=== PATIENT | female | born 1955 | race Caucasian/White ===

== ENCOUNTER 2019-03-01 13:26 | Inpatient (IN) ==
[2019-03-01] MEDS ORDERED: TYLENOL PO PRN (14:14)
[2019-03-01] MEDS ORDERED: DESYREL PO PRN (14:14)
[2019-03-01] MEDS ORDERED: VANCOMYCIN IV PER PHARMACY MISC SCH (14:14)
[2019-03-01 14:46] LABS: BASO# 0.03 X1000 (0.0-0.2); BASO% 0.2 % (0.0-0.8); EOS# 0.28 X1000 (0.0-0.7); EOS% 1.7 % (0.0-10.0); IMM GRAN% 0.2 % (0.0-0.5); LYMPH# 1.45 X1000 (1.2-3.4); MCH 27.4 PG (27-31); MCHC 32.5 g/dL (33-37); MCV 84.4 FL (81-99); MONO# 1.14 X1000 (0.11-0.59); MONO% 7.1 % (1.7-9.3); MPV 9.6 FL (7.4-10.4); NEUT# 13.19 X1000 (1.4-6.5); NEUT% 81.8 % (42.2-75.2); PLT 257 X1000 (130-400); RBC 4.74 XMIL (4.2-5.4); RDW 14.9 % (11.5-14.5); WBC 16.13 X1000 (4.8-10.8)
[2019-03-01 14:47] LABS: IMM GRAN# 0.04 X1000 (0.0-0.04)
[2019-03-01 15:07] LABS: AGAP 11; BUN 12 mg/dL (8-22); CALCIUM 9.6 mg/dL (8.8-10.2); CHLORIDE 95 mmol/L (98-107); COSMO 270; CREATININE 0.7 mg/dL (0.5-0.9); ESTIMATED GFR > 60; GLUCOSE 127 mg/dL (70-104); POTASSIUM 3.2 mmol/L (3.5-5.1); SODIUM 134 mmol/L (136-145); TCO2 28 mmol/L (25-35)
[2019-03-01] MEDS: NS 1,000 ML IV SCH (15:33)
[2019-03-01] MEDS: LEVAQUIN 500 MG/D5W 500 MG/100 ML IVPB IV SCH (15:33)
[2019-03-01] MEDS: NORCO-10 PO PRN ×2 (15:34→21:38)
[2019-03-01] MEDS: LOVENOX SUBQ SCH (15:34)
[2019-03-01] MEDS ORDERED: VANCOMYCIN 2 GM in NS 500 ML IV ONE (16:00)
[2019-03-01] MEDS ORDERED: HUMULIN 70/30 SUBQ SCH (16:00)
[2019-03-01] MEDS ORDERED: KLOR-CON PO ONE (18:20)
[2019-03-01 19:59] LABS: INR 1.26; PROTIME 16.8 Seconds (11.0-16.0)
[2019-03-01 20:00] LABS: PTT 49.2 Seconds (22.3-41.8)
[2019-03-01] MEDS: ELAVIL PO SCH (20:43)
[2019-03-01] MEDS: RISPERDAL PO SCH (20:43)
[2019-03-01] MEDS: APRESOLINE PO SCH (20:43)
[2019-03-01] MEDS: TENORMIN PO SCH (20:43)
[2019-03-01] MEDS: MIRAPEX PO SCH (20:43)
[2019-03-02] MEDS: NORCO-10 PO PRN ×4 (03:48→22:06)
[2019-03-02] MEDS: PHENERGAN IV PRN ×3 (03:49→18:57)
[2019-03-02] MEDS ORDERED: HUMULIN 70/30 SUBQ SCH (07:00)
[2019-03-02] MEDS: NORVASC PO SCH (08:10)
[2019-03-02] MEDS: LEXAPRO PO SCH ×2 (08:10→20:31)
[2019-03-02] MEDS: APRESOLINE PO SCH ×2 (08:10→20:31)
[2019-03-02] MEDS: ESTRACE PO SCH (08:11)
[2019-03-02] MEDS: TENORMIN PO SCH ×2 (08:11→20:31)
[2019-03-02] MEDS: RISPERDAL PO SCH ×2 (08:11→20:30)
[2019-03-02] MEDS: HYZAAR 50/12.5 MG PO SCH (08:11)
[2019-03-02] MEDS: NS 1,000 ML IV SCH ×3 (08:11→16:05)
--- NOTE | 2019-03-02 09:11 | PROGRESS NOTE ---
DATE: 03/02/2019 SUBJECTIVE: Mrs. Trejo was admitted to [facility] with cellulitis of the right lower extremity. She met initial screening criteria for sepsis. She has persistent warmth and erythema in the right lower extremity but the amount of swelling has improved overnight on IV antibiotics. Lactate levels are all within normal limits. Blood sugars are fluctuating. Blood sugar this morning was 195. Blood pressure is stable. She denies any chest pain, palpitations, or anginal equivalents. OBJECTIVE: Vital signs: Temperature 99.1, pulse 70, respirations 20, BP 145/63. CV: Regular rate and rhythm. Lungs: Clear. Abdomen: Soft, nontender, with active bowel sounds. Extremities: There is marked erythema and warmth of the tibial aspect of the right lower extremity. She has less peripheral edema in that leg. ASSESSMENT AND PLAN: 1. Cellulitis of the right lower extremity. Because of leukocytosis, fever, and defined source of infection, she met the initial criteria for sepsis. She is hemodynamically stable. There has been no evidence of end-organ damage. Lactate levels are normal. We will continue intravenous Levaquin and vancomycin pending cultures. 2. Type 2 insulin-dependent diabetes mellitus. We will continue an 1800 calorie ADA diet, pattern sugars, Humulin-R sliding scale, and will adjust the dosage of Novolin 70/30 as needed. cc: Mana Fajardo MD
[2019-03-02] MEDS: SODIUM CHLORIDE 0.9% INJ PRN ×2 (13:20→18:57)
[2019-03-02] MEDS: LOVENOX SUBQ SCH (15:20)
[2019-03-02] MEDS: LEVAQUIN 500 MG/D5W 500 MG/100 ML IVPB IV SCH (15:20)
[2019-03-02] MEDS: HUMULIN 70/30 SUBQ SCH (16:03)
[2019-03-02] MEDS: VANCOMYCIN 1,500 MG in NS 250 ML IV SCH (16:04)
[2019-03-02] MEDS: ELAVIL PO SCH (20:31)
[2019-03-02] MEDS: MIRAPEX PO SCH (20:31)
[2019-03-03] MEDS: NS 1,000 ML IV SCH ×2 (01:32→15:08)
[2019-03-03] MEDS: HUMULIN 70/30 SUBQ SCH ×2 (06:12→17:03)
[2019-03-03] MEDS: PHENERGAN IV PRN (06:13)
[2019-03-03] MEDS: NORCO-10 PO PRN ×4 (06:13→21:26)
[2019-03-03 07:10] LABS: BASO# 0.03 X1000 (0.0-0.2); BASO% 0.4 % (0.0-0.8); EOS# 0.26 X1000 (0.0-0.7); EOS% 3.7 % (0.0-10.0); HEMOGLOBIN 11.3 g/dL (12.0-16.0); LYMPH# 1.37 X1000 (1.2-3.4); LYMPH% 19.5 % (20.5-51.1); MCHC 31.4 g/dL (33-37); MCV 85.9 FL (81-99); MONO# 0.76 X1000 (0.11-0.59); MONO% 10.8 % (1.7-9.3); MPV 9.4 FL (7.4-10.4); NEUT# 4.62 X1000 (1.4-6.5); NEUT% 65.6 % (42.2-75.2); PLT 239 X1000 (130-400); RBC 4.19 XMIL (4.2-5.4); RDW 14.7 % (11.5-14.5); WBC 7.04 X1000 (4.8-10.8)
[2019-03-03 07:31] LABS: AGAP 10; BUN 12 mg/dL (8-22); CALCIUM 8.2 mg/dL (8.8-10.2); CHLORIDE 103 mmol/L (98-107); COSMO 281; CREATININE 0.6 mg/dL (0.5-0.9); ESTIMATED GFR > 60; GLUCOSE 137 mg/dL (70-104); POTASSIUM 2.9 mmol/L (3.5-5.1); SODIUM 140 mmol/L (136-145); TCO2 27 mmol/L (25-35)
[2019-03-03] MEDS ORDERED: KLOR-CON PO ONE (10:44)
[2019-03-03] MEDS: LEXAPRO PO SCH ×2 (11:14→20:02)
[2019-03-03] MEDS: NORVASC PO SCH (11:20)
[2019-03-03] MEDS: TENORMIN PO SCH ×2 (11:20→20:02)
[2019-03-03] MEDS: ESTRACE PO SCH (11:21)
[2019-03-03] MEDS: HYZAAR 50/12.5 MG PO SCH (11:23)
[2019-03-03] MEDS: APRESOLINE PO SCH ×2 (11:23→20:02)
[2019-03-03] MEDS: RISPERDAL PO SCH ×2 (11:23→20:02)
--- NOTE | 2019-03-03 12:19 | PROGRESS NOTE ---
DATE: 03/03/2019 SUBJECTIVE: The patient's chart was reviewed. In summary, the patient was admitted on 03/01/2019 with significant right lower extremity swelling with associated erythema and fever to 103. The diagnosis of a right lower extremity cellulitis was made. Upon admission, the patient's white blood cell count was noted to be elevated at 16,000. Blood cultures were drawn. The patient was started on vancomycin and Levaquin therapy. Since that time, the patient states she has demonstrated mild, although very slow improvement. She continues to have considerable right lower extremity edema and erythema. Pain is significant although slightly improved. She has had no fevers, chills, shortness of breath, or chest pain overnight. She has developed nausea since starting antibiotics. OBJECTIVE: T-max 98.4, heart rate 64 to 78, respirations 16 to 20, blood pressure 128 to 168 over 60 to 84. General: Well nourished, well developed, in no acute distress. Cardiovascular: Regular rate and rhythm. No significant murmurs, rubs, or gallops. Pulmonary: Clear to auscultation bilaterally. Abdomen: Soft, nontender, nondistended. Positive bowel sounds. Extremities: Moves all extremities well. No significant clubbing or cyanosis. One to 2+ lower extremity edema on the right associated with cellulitis. Dermatologic: Evaluation reveals deep erythema with localized fever to the right lower extremity, per report, slightly improved from admission. LABORATORY DATA: White blood count 7.04 hemoglobin 11.3, hematocrit 36.0, platelet count 239,000. Sodium 140, potassium 2.9, chloride 103 bicarb 27, BUN 12, creatinine 0.6, glucose 137, calcium 8.2. ASSESSMENT AND PLAN: 1. Cellulitis of the right lower extremity. This remains significant. The patient continues to have considerable pain. White blood cell count and fever have improved, suggesting better control with antibiotic intervention. Blood cultures thus far are negative. Unfortunately, her clinical situation remains marginal. She continues to have considerable pain as well as considerable erythema and induration. For now, the patient continues to require IV antibiotic intervention. We will continue this and determine when discharge home is appropriate depending on her clinical improvement. 2. Hypokalemia. We will provide potassium supplementation today. 3. Type 2 diabetes. The patient is currently being treated with ADA diet and insulin 70/30. Blood sugars are reasonably controlled. 4. Hypertension. We will continue the patient on her home medications. 5. Nausea. We discussed this in detail. While I suspect this is antibiotic associated, I am hesitant to make any changes with her laboratory improvement. If she continues to have considerable nausea tomorrow, we will consider transitioning from Levaquin to Zosyn therapy. We will continue antiemetic agents for now. 6. Disposition. At this point, the patient continues to require correction care in a hospital setting. We will plan discharge home once appropriate. cc: MD Mana Curtis MD
[2019-03-03] MEDS: LEVAQUIN 500 MG/D5W 500 MG/100 ML IVPB IV SCH (15:04)
[2019-03-03] MEDS: LOVENOX SUBQ SCH (15:04)
[2019-03-03] MEDS: VANCOMYCIN 1,500 MG in NS 250 ML IV SCH (17:02)
[2019-03-03] MEDS: ELAVIL PO SCH (20:02)
[2019-03-03] MEDS: MIRAPEX PO SCH (20:02)
[2019-03-04] MEDS: NORCO-10 PO PRN ×5 (01:53→20:46)
[2019-03-04] MEDS: NS 1,000 ML IV SCH ×2 (06:30→06:35)
[2019-03-04] MEDS: HUMULIN 70/30 SUBQ SCH ×2 (07:00→16:54)
[2019-03-04] MEDS: RISPERDAL PO SCH ×2 (08:59→20:45)
[2019-03-04] MEDS: NORVASC PO SCH (08:59)
[2019-03-04] MEDS: APRESOLINE PO SCH ×2 (09:00→20:46)
[2019-03-04] MEDS: HYZAAR 50/12.5 MG PO SCH (09:00)
[2019-03-04] MEDS: ESTRACE PO SCH (09:00)
[2019-03-04] MEDS: TENORMIN PO SCH ×2 (09:00→20:45)
[2019-03-04] MEDS: PHENERGAN IV PRN (09:02)
[2019-03-04] MEDS ORDERED: NS 1,000 ML IV SCH (11:45)
[2019-03-04] MEDS: ZOSYN 3.375 GM in NS 50 ML IV SCH ×2 (12:00→16:00)
--- NOTE | 2019-03-04 12:18 | PROGRESS NOTE ---
DATE: 03/04/2019 SUBJECTIVE: Over the course of the last 24 hours, unfortunately, the patient states that she has developed further decline in her clinical condition. The patient notes increasing pain associated with her cellulitis to the left lower extremity. She has developed several vesicles as well as small pustules associated. She continues to have considerable nausea with decreased p.o. intake. She denies fevers, chills, shortness of breath, or chest pain at the present time. OBJECTIVE: T-max 98.6 degrees, heart rate 66 to 72, respirations 18 to 20, blood pressure 128- 170/63-84. General: Well-nourished, well-developed, in no acute distress. Cardiovascular: Regular rate and rhythm. No significant murmurs, rubs, or gallops. Pulmonary: Clear to auscultation bilaterally. Abdomen: Soft, nontender, nondistended. Positive bowel sounds. Extremities: Moves all extremities well. There is 2+ lower extremity edema on the right with associated cellulitis as described. No clubbing or cyanosis. No clubbing, cyanosis, or edema on the left. Dermatologic: Evaluation reveals a deeply erythematous patch with localized fever to the right lower extremity. From yesterday, there, she has developed several vesicles and small pustules. Laboratory Data: None. ASSESSMENT AND PLAN: 1. Cellulitis of the right lower extremity-unfortunately, clinically, this continues to progress. From a laboratory and vital sign standpoint, she has achieved improvement. At this point, we will convert the patient from levofloxacin to Zosyn therapy secondary to associated nausea. I have asked nursing staff to culture the vesicle or pustule if this ruptures. We will schedule a lower extremity venous Doppler to rule out associated deep venous thrombosis. Depending on the patient's progress over the course of the next 24 hours, we will consider whether infectious disease consultation is appropriate. We will remain aware that this could be a primary dermatologic pathology; however, this seems less likely. In the setting of fevers, a primary infectious etiology seems most likely. 2. Hypokalemia-patient was repleted yesterday. We will recheck this tomorrow. 3. Type 2 diabetes-patient's blood sugars are reasonably controlled on her current regimen. 4. Hypertension-the patient's blood pressure is marginally elevated. For now, we will continue her home regimen. We will defer further titration to Dr. Fajardo. I suspect some of the elevation is reactive secondary to pain. 5. Nausea-since starting antibiotic intervention, the patient has developed persistent nausea. Her oral intake is decreasing. At this point, I feel vancomycin is necessary for treatment. We will convert the patient from levofloxacin to Zosyn to see if this improves the nausea. This will also broaden coverage. We will continue antiemetic agents for now. 6. Disposition-at this point, the patient continues to require penitentiary care in a hospital setting. We will plan discharge home once appropriate. cc: MD Mana Curtis MD
--- NOTE | 2019-03-04 15:05 | Diag Imaging Result Doc PS360 ---
EXAM: CT EXT LOWER RIGHT W/CON 03/04/2019 HISTORY: Persistent cellulitis with pain, rule out abscess TECHNIQUE: CT of the legs with intravenous contrast COMMENT: There is generalized subcutaneous edema bilaterally, worse on the right than the left. There is a greater degree of venous enhancement in the right calf than on the left. This may represent increased blood flow to the right leg. There are no definite filling defects in the visualized veins. There is no evidence of acute bony disease. No erosions or periosteal reactions are present. IMPRESSION: Edema and hyperemia in the right leg consistent with cellulitis. No evidence of discrete abscess. Electronically signed by Rodney Yang 03/04/2019 3:03 PM
[2019-03-04] MEDS: VANCOMYCIN 1,500 MG in NS 250 ML IV SCH (16:54)
[2019-03-04] MEDS: LOVENOX SUBQ SCH (16:54)
[2019-03-04] MEDS: MIRAPEX PO SCH (20:45)
[2019-03-04] MEDS: LEXAPRO PO SCH (20:45)
[2019-03-04] MEDS: ELAVIL PO SCH (20:45)
[2019-03-05] MEDS: ZOSYN 3.375 GM in NS 50 ML IV SCH ×3 (01:07→12:50)
[2019-03-05] MEDS: NORCO-10 PO PRN ×5 (01:49→20:45)
[2019-03-05] MEDS: HUMULIN 70/30 SUBQ SCH ×2 (06:05→17:13)
[2019-03-05 07:23] LABS: BASO# 0.09 X1000 (0.0-0.2); BASO% 1.1 % (0.0-0.8); EOS# 0.24 X1000 (0.0-0.7); HEMATOCRIT 35.3 % (37.0-47.0); HEMOGLOBIN 11.4 g/dL (12.0-16.0); IMM GRAN# 0.03 X1000 (0.0-0.04); IMM GRAN% 0.4 % (0.0-0.5); LYMPH# 1.67 X1000 (1.2-3.4); LYMPH% 20.7 % (20.5-51.1); MCH 27.4 PG (27-31); MCHC 32.3 g/dL (33-37); MCV 84.9 FL (81-99); MONO# 0.86 X1000 (0.11-0.59); MONO% 10.7 % (1.7-9.3); MPV 9.1 FL (7.4-10.4); NEUT# 5.17 X1000 (1.4-6.5); NEUT% 64.1 % (42.2-75.2); PLT 260 X1000 (130-400); RBC 4.16 XMIL (4.2-5.4); RDW 14.6 % (11.5-14.5); WBC 8.06 X1000 (4.8-10.8)
[2019-03-05 07:26] LABS: AGAP 12; ALB/GLOB RATIO 0.7; ALBUMIN 2.9 g/dL (3.5-5.0); ALKALINE PHOSPHATASE 92 U/L (32-104); BUN 5 mg/dL (8-22); CALCIUM 8.5 mg/dL (8.8-10.2); CHLORIDE 102 mmol/L (98-107); COSMO 277; CREATININE 0.5 mg/dL (0.5-0.9); ESTIMATED GFR > 60; GLUCOSE 110 mg/dL (70-104); GOT 14 U/L (10-30); GPT 9 U/L (10-36); POTASSIUM 3.1 mmol/L (3.5-5.1); SODIUM 140 mmol/L (136-145); TCO2 26 mmol/L (25-35); TOTAL BILIRUBIN 0.42 mg/dL (0.20-1.00); TOTAL PROTEIN 6.8 g/dL (6.3-8.3)
[2019-03-05 07:45] LABS: EOS 4 % (1-10); LYMPHS 22 % (21-51); MONO 9 % (1-9); SEGS 65 % (42-75)
[2019-03-05] MEDS: TENORMIN PO SCH ×2 (08:02→20:45)
[2019-03-05] MEDS: RISPERDAL PO SCH ×2 (08:02→20:44)
[2019-03-05] MEDS: ESTRACE PO SCH (08:03)
[2019-03-05] MEDS: HYZAAR 50/12.5 MG PO SCH (08:03)
[2019-03-05] MEDS: NORVASC PO SCH (08:03)
[2019-03-05] MEDS: APRESOLINE PO SCH ×2 (08:03→20:45)
[2019-03-05] MEDS: PHENERGAN IV PRN (08:05)
[2019-03-05] MEDS ORDERED: KLOR-CON PO ONE (08:10)
--- NOTE | 2019-03-05 08:51 | PROGRESS NOTE ---
DATE: 03/05/2019 SUBJECTIVE: Mrs. Trejo was admitted to [facility] with a cellulitis of the right lower extremity. She continues with persistent erythema and swelling as well as pain of the right lower extremity. Her leukocytosis of 16,000 has resolved. She is no longer running any fevers. Unfortunately, the erythema seems worse this morning. She now has vesicular lesions on the right lower extremity. A CT scan of the right lower extremity demonstrated significant cellulitis, but no bony lesions suggestive of osteomyelitis. Blood pressures are running in the 140s and 150s whereas her diastolic blood pressures are in the 70s and 80s. She denies any chest pain, palpitations, or anginal equivalents. She has a history of type 2 insulin-dependent diabetes mellitus. Her morning sugars are consistently less than 120. Her postprandial sugars are in 150s and 160s. OBJECTIVE: Temperature 98.4 degrees, pulse 70, respirations 18, and BP 139/70.CV: Regular rate and rhythm. Lungs: Clear. Abdomen: Soft and nontender with active bowel sounds. Extremities: There is marked erythema of the tibial aspect of the right lower extremity with vesicular lesions. A CBC demonstrated white count of 8000, hemoglobin 11.4, hematocrit 35.3 and platelet count 260,000. Electrolytes demonstrate the following. Sodium 140, potassium 3.1, BUN 5, creatinine 0.5 and glucose 110. ASSESSMENT AND PLAN: 1. Cellulitis of the right lower extremity. Her leukocytosis and high fevers have resolved. She still has a persistent erythema and swelling of the right lower extremity. A CT scan of the lower extremity demonstrated no evidence of osteomyelitis. Blood cultures x2 are negative at 48 hours. Gram stain of the vesicular lesion demonstrated no bacteria. We will continue both the Zosyn and vancomycin. I will consult Dr. Tello Howard for further evaluation. 2. Type 2 insulin-dependent diabetes mellitus. Blood sugars are generally well controlled. We will continue an 1800 calorie ADA diet, pattern sugars, Humulin R sliding scale, and home dosage of Novolin 70/30, 20 units in the morning, and 15 units at night. cc: Mana Fajardo MD
--- NOTE | 2019-03-05 10:36 | INFECTIOUS DISEASE CONSULT REP ---
DATE: 03/07/2019 CONCLUSION: The patient has leg cellulitis to which she is predisposed because of her morbid obesity causing chronic leg edema. RECOMMENDATIONS: 1. As regarding antibiotics, I would switch the patient to Ancef 2 g IV every 8 hours and continue that for anywhere from another 3 to 7 days and then discharge the patient on p.o. Keflex 500 mg p.o. every 8 hours for another 1 to 2 weeks. If the culture taken from the leg shows an organism resistant to Ancef then I would change antibiotics to cover the organism. 2. Leg elevation as you are doing. The leg needs to be kept up and as high as possible which you are doing and also for as long as long as possible. The patient noted that when she stood up her leg was very painful and unfortunately with a bad leg cellulitis that happens and with time the pain should go away. 3. Would be weight loss, which might be impossible to do in this patient, but still she really she really needs to lose weight or else she is going to continue to have cellulitis in that leg and possibly in the other leg also. 4. Support stockings. I would get the ones that you can get at a drug store and they should be length from the foot to the thigh and should be will worn all the time. 5. I would tell the patient to avoid salt and salty foods. 6. Sometimes patients have tinea pedis and this can serve as a portal of entry for cellulitis in the leg. Ms. Trejo does not have does not have tinea pedis, but if she should get it, but I told her she should use a cream such as clotrimazole to put between her toes every 12 hours until the rash disappears and then if it comes back again to restart using the clotrimazole twice a day until the rash goes away and then continue it daily on a chronic basis. DISCUSSION: The patient approximately 5 days ago started having swelling and erythema involving the right leg. She also had pain and fever. She has been admitted to the hospital and her fever has gone away and the pain is gone away except when she stands up on the leg. LABORATORY DATA: Patient's laboratory studies show a CBC with a white count of 8060, hemoglobin 11.4, and platelet count 260,000. Creatinine is 0.5, GFR is greater than 60. Gram stain taken from a culture of the patient's leg showed a rare white cell, but no organisms. Blood cultures are sterile. CT scan of the leg showed cellulitis. PAST MEDICAL HISTORY/REVIEW OF SYSTEMS: Eyes and ears: She does not have any trouble hearing or seeing. Neck no stiffness. Respiratory: No cough shortness of breath. Cardiac no chest pain or palpitations. GI no nausea, vomiting, or diarrhea. :No dysuria or flank pain. Bones, joints, muscle see present illness. Neurologic: No seizures no loss of motor or sensory function. 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 She has had a hysterectomy. PREVIOUS HOSPITALIZATIONS AND OPERATIONS: She has had 2 labor and deliveries, a miscarriage, a hysterectomy, bilateral carpal tunnel surgery, cataract surgery, and gastric bypass. She has also had a tonsillectomy, breast reduction and tummy tuck. MEDICAL DISEASES: Positive for morbid obesity, diabetes mellitus, and hypertension. INFECTIOUS DISEASE HISTORY: Infectious disease history positive for pneumonia. FAMILY HISTORY: Family history positive for diabetes mellitus, hypertension, myocardial infarction, and cancer. SOCIAL HISTORY: [place] She is . She has dogs, cats and donkeys for pets. ALLERGIES: Allergic to morphine. HOME MEDICATIONS: Include the following: Elavil, amlodipine, atenolol, Librium, Lexapro, Estrace, insulin, losartan/hydrochlorothiazide, Mirapex and Risperdal. PHYSICAL EXAMINATION: Vital Signs: Temperature is 98.7 degrees, pulse 70, respirations 16, blood pressure 169/74. The patient is 5 feet 6 inches tall, weighs 233 pounds. General: This is a morbidly obese, elderly female. She is in no acute distress. Head/eyes/ears/nose/throat: She can hear my spoken words and see near objects. She does not have any white patches in her mouth or on her tongue. Neck: No meningismus. Lungs: Clear to auscultation. Cardiovascular: Heart rate is regular. Abdomen: Soft and nontender. Extremities: The right leg is erythematous and swollen. It does have bullae with yellowish clear fluid. The left leg is swollen but not as much as the right leg. There is a brownish discoloration to the distal part of the patient's leg. Neurologic: Patient is alert. She can move her extremities. There is no tremor. Her sensation is intact to touch. Her memory as regarding her medical history is intact. Integument: No rash other than what I mentioned above about the patient's legs. I am signing off the patient's case. Thank you for the consult. cc: MD Mana Smith MD MTDJessenia
[2019-03-05] MEDS: LOVENOX SUBQ SCH (14:00)
[2019-03-05] MEDS: VANCOMYCIN 1,500 MG in NS 250 ML IV SCH (17:13)
[2019-03-05] MEDS: LEXAPRO PO SCH (20:44)
[2019-03-05] MEDS: MIRAPEX PO SCH (20:44)
[2019-03-05] MEDS: ELAVIL PO SCH (20:45)
[2019-03-06] MEDS: ZOSYN 3.375 GM in NS 50 ML IV SCH ×5 (01:46→16:58)
[2019-03-06] MEDS: NORCO-10 PO PRN ×5 (02:50→20:53)
[2019-03-06] MEDS: PHENERGAN IV PRN (06:12)
[2019-03-06] MEDS: SODIUM CHLORIDE 0.9% INJ PRN (06:12)
[2019-03-06] MEDS: HUMULIN 70/30 SUBQ SCH ×2 (06:14→17:00)
[2019-03-06] MEDS: RISPERDAL PO SCH ×2 (08:00→20:52)
[2019-03-06] MEDS: APRESOLINE PO SCH ×2 (08:00→20:53)
[2019-03-06] MEDS: NORVASC PO SCH (08:00)
[2019-03-06] MEDS: HYZAAR 50/12.5 MG PO SCH (08:00)
[2019-03-06] MEDS: TENORMIN PO SCH ×2 (08:00→20:53)
[2019-03-06] MEDS: ESTRACE PO SCH (08:00)
--- NOTE | 2019-03-06 10:42 | Extremity Venous Study ---
PROCEDURE NAME: Venous U/S Right Leg - 03/05/2019 REQUESTING PHYSICIAN: Dr. Noah Ramirez. PHOTO MASK PATTERN GENERATOR: Charly. INDICATIONS: Cellulitis and edema. EQUIPMENT: [employer] E 9 ultrasound system with a 9 L-D transducer. FINDINGS: Images of the right lower extremity venous system with comparison shot to the left common femoral vein were obtained in both sagittal and transverse planes. Doppler was used to evaluate veins for spontaneity, phasicity, respiratory excursion, and digital augmentation. There appears to be some groin adenopathy noted on the right side, which I would recommend handling clinically. There appears to be no obvious superficial or deep venous thrombosis noted. INTERPRETATION: Right groin lymphadenopathy which I would recommend handling clinically, but no acute venous issue noted. cc: MD Noah Roman MD M. Neel Roberts, MD
[2019-03-06] MEDS: VANCOMYCIN 1,500 MG in NS 250 ML IV SCH (11:11)
[2019-03-06] MEDS: LOVENOX SUBQ SCH ×2 (12:43→17:00)
--- NOTE | 2019-03-06 13:23 | PROGRESS NOTE ---
DATE: 03/06/2019 Mrs. Trejo has less erythema and swelling in the right lower extremity. Blood cultures and wound cultures are normal. Dr. Howard had switched her to intravenous Ancef. She still has persistent pain in that leg. We recently increased the amlodipine to 10 mg daily and her blood pressure is beginning to trend downward. She denies any chest pain, palpitations, or anginal equivalents. Blood sugars are consistently less than 150. She denies any polyuria, polydipsia, or episodes of symptomatic hyperglycemia. VITALS: Temperature 98.0 degrees, pulse 69, respirations 16, BP 153/72. CV: Regular rate and rhythm. Lungs: Clear. Abdomen: Soft, nontender, with active bowel sounds. Extremities: There is less swelling and erythema in the right lower extremity. ASSESSMENT AND PLAN: 1. Cellulitis of the right leg. We will continue intravenous Ancef. Hopefully we will be able to transition her to oral Keflex soon. 2. Hypertension. Blood pressure is stable. We will continue her current regimen of medications. 3. Type 2 insulin-dependent diabetes mellitus. Blood sugars look much better. We will continue pattern sugars, Humulin R sliding scale, and her regular home dosage of Novolin 70/30, 20 units in the morning and 15 units at night. cc: Mana Fajadro MD
[2019-03-06] MEDS: KEFZOL 2 GM/D5W 2 GM/50 ML IVPB IV SCH (20:11)
[2019-03-06] MEDS: ELAVIL PO SCH (20:52)
[2019-03-06] MEDS: LEXAPRO PO SCH (20:52)
[2019-03-06] MEDS: MIRAPEX PO SCH (20:53)
[2019-03-07] MEDS: NORCO-10 PO PRN ×2 (02:15→06:15)
[2019-03-07] MEDS: KEFZOL 2 GM/D5W 2 GM/50 ML IVPB IV SCH (02:16)
[2019-03-07] MEDS: HUMULIN 70/30 SUBQ SCH (06:14)
[2019-03-07 07:17] VITALS: BP 147/64
[2019-03-07] MEDS: ESTRACE PO SCH (08:58)
[2019-03-07] MEDS: HYZAAR 50/12.5 MG PO SCH (08:58)
[2019-03-07] MEDS: TENORMIN PO SCH (08:59)
[2019-03-07] MEDS: APRESOLINE PO SCH (08:59)
[2019-03-07] MEDS: NORVASC PO SCH (08:59)
[2019-03-07] MEDS: RISPERDAL PO SCH (08:59)
[2019-03-07] MEDS ORDERED: KEFLEX PO SCH (14:00)
--- NOTE | 2019-03-10 06:27 | DISCHARGE SUMMARY ---
ADMISSION DATE: 03/01/2019 DISCHARGE DATE: 03/07/2019 DISCHARGE DIAGNOSES: 1. Cellulitis of the right anterior lower leg. 2. Sepsis syndrome. 3. Essential hypertension. 4. Type 2 insulin-dependent diabetes mellitus complicated by polyneuropathy. 5. Major depression. 6. Fibromyalgia. DISCHARGE INSTRUCTIONS: 1. Return to clinic in 1 week to see me Dr. Heriberto Fajardo in anticipation of a transition of care visit. 2. Activity as tolerated. 3. 1800 calorie ADA diet. MEDICATIONS: 1. Keflex 500 mg q.6 hours for 10 days. 2. Apresoline 10 mg b.i.d. 3. Trazodone 50 mg at bedtime p.r.n. insomnia. 4. Amlodipine 10 mg daily. 5. Losartan HCT 100/25 one p.o. daily. 6. Mirapex 0.5 mg at night. 7. Lexapro 20 mg at night. 8. Vitamin B12 1000 mcg b.i.d. 9. Risperdal 0.5 mg b.i.d. 10. Lortab 10 325 1 q.6 hours p.r.n. pain. 11. Atenolol 50 mg b.i.d. 12. Estrace 0.5 mg daily. 13. Elavil 25 mg at night. DISCHARGE PHYSICAL EXAMINATION: This is a well-developed, well-nourished, 64-year-old, lady in no apparent distress. She is afebrile. Pulse 65, respirations 18, and BP 147/64. CV: Regular rate and rhythm. Lungs: Clear. Abdomen: Soft, nontender, with active bowel sounds. No hepatosplenomegaly. No abdominal bruits. Extremities: There is minimal swelling of the right lower extremity. She still has some residual erythema of the right lower extremity, but it is now pale pink in color as compared to dark maroon on admission. There is no significant warmth in the right lower extremity. HOSPITAL COURSE: Ms. Noni Trejo presented to my office complaining of progressive swelling erythema and warmth of the right lower extremity in association with fevers as high as 103 degrees and hard shaking rigors. She denied any nausea, vomiting or diarrhea. The patient was admitted to [facility] where we began with fluid resuscitation and broad-spectrum antibiotics including vancomycin and Levaquin pending cultures. Wound and blood cultures were negative at 48 hours. Noninvasive venous studies of the right lower extremity demonstrated no evidence of deep venous thrombosis. A CT scan of the right lower extremity demonstrated no evidence of osteomyelitis. Because of the leukocytosis of 16,000, fever, and a defined source of infection, she met the initial criteria for sepsis. She never did have any end organ damage. Serial lactate levels were normal. Her clotting studies were normal. There was no evidence of DIC. With broad- spectrum antibiotics including Levaquin and vancomycin, she made a little bit of improvement but began having persistent nausea. Dr. Ramirez stopped the Levaquin and added Zosyn. She really just did not improve as quickly as we had hoped, and we consulted Dr. Tello Howard of the Department of Infectious Disease. He switched her to Ancef 2 g IV q.8 hours. She may a significant improvement with IV Ancef. She defervesced and remained afebrile. Her leukocytosis resolved. We transitioned her to oral Keflex, and she will take Keflex 500 mg q.6 hours for an additional 10 days as an outpatient. She does have a history of type 2 insulin-dependent diabetes mellitus complicated by polyneuropathy. We placed her on pattern sugars, Humulin R sliding scale, and an 1800 calorie ADA diet. Her blood sugars fluctuated and we adjusted the dosage of the Novolin 70/30 to 20 units in the morning and 15 units at night with improvement in her blood sugars. She does have a history of hypertension. Her blood pressure fluctuated throughout the hospitalization. We increased the dosage of amlodipine to 10 mg daily. Her blood pressure was trending down at the time of discharge. Having reached maximum hospital benefit, the patient was discharged in stable condition. cc: Mana Fajardo MD
== END 2019-03-07 09:45 | disposition home or self-care (01) | DRG 603 ==
LOC: DIRADM 13:26 → 3N 14:06
PROVIDERS: ADMIT Internal Medicine; ATTEND Internal Medicine